=== PATIENT | male | born 1995 | race Caucasian/White ===

== ENCOUNTER 2017-08-25 08:54 | Emergency (ER) | payer OTHER ==
[2017-08-25 09:12] VITALS: BP 128/82; TEMP 97; O2SAT 99
[2017-08-25] MEDS ORDERED: CHLORHEXIDINE GLUCONATE 4 % 15 ML UD TOP ONE (09:13)
--- NOTE | 2017-08-25 09:15 | ED.PDOC ---
History of Present Illness - General Chief Complaint: Laceration Stated Complaint: L THUMB LACERATION Time Seen by Provider: 08/25/17 09:12 Source: patient Exam Limitations: no limitations - History of Present Illness Initial Comments: PT REPORTS ACCIDENTALLY CUTTING HIS L THUMB WITH A KNIFE JUST PRIOR TO ARRIVAL. Timing/Duration: just prior to arrival Severity: mild Location: hands Allergies/Adverse Reactions: Allergies NO KNOWN ALLERGY Allergy (Verified 08/25/17 09:02) Review of Systems - Review of Systems Constitutional: Denies: chills, fever Gastrointestinal/Abdominal: Denies: nausea, vomiting Musculoskeletal: Denies: joint pain, joint swelling Skin: Denies: change in color, lesions Past Medical History (General) - Patient Medical History Hx Stroke: No Hx Congestive Heart Failure: No Hx Diabetes: No Surgical History: no surgical history - Vaccination History Hx Tetanus, Diphtheria Vaccination: Yes - 2014 Family Medical History - Family History Mother Family History: No Known Physical Exam - Physical Exam General Appearance: Alert, Comfortable, No apparent distress, Well Developed, Well Groomed, Well Hydrated Eyes, Ears, Nose, Throat Exam: normal ENT inspection Neck: normal inspection Respiratory: no respiratory distress Neurologic: alert, normal mood/affect, oriented x 3 Skin Exam: warm/dry, normal color Skin Problem Location: upper extremities Skin Character: other - SUPERFICIAL SKIN FLAP LACERATION TO THE L THUMB PAD Departure - Departure Clinical Impression: Accidental laceration Time of Disposition: 09:16 Disposition: Discharge to Home or Self Care Condition: Good Departure Forms: ED Discharge - Pt. Copy, Patient Portal Self Enrollment Instructions: DI for Laceration Repair, DI for Avulsion Laceration (Not Requiring Sutures) Diet: resume usual diet Referrals: [facility] [Provider Group] - 1-2 Weeks
== END 2017-08-25 09:27 | disposition home or self-care (01) ==
LOC: ER 08:54
DX: S61.012A Laceration without foreign body of left thumb without damage to nail, initial encounter (principal); W26.0XXA Contact with knife, initial encounter; Y92.9 Unspecified place or not applicable